=== PATIENT | female | born 1945 | race Caucasian/White ===

== ENCOUNTER 2021-10-23 10:23 | Emergency (ER) | payer MEDICARE ==
[~2021-10-23] VITALS: Ht 162.6 cm; Wt 84.1 kg
[2021-10-23] MEDS ORDERED: GABA-1171 PO (10:42)
[2021-10-23] MEDS ORDERED: CARV25TA PO (10:42)
[2021-10-23] MEDS ORDERED: ECOT81TA5 PO (10:42)
[2021-10-23] MEDS ORDERED: MORP15TA2 PO (10:42)
[2021-10-23] MEDS ORDERED: ATOR40TA75 PO (10:42)
[2021-10-23] MEDS ORDERED: PANT40TA29 PO (10:42)
[2021-10-23] MEDS ORDERED: CYMB1CAP5 PO (10:42)
[2021-10-23] MEDS ORDERED: ALPR0.25 PO (10:42)
[2021-10-23] MEDS ORDERED: AMLO10TA PO (10:42)
[2021-10-23 12:01] VITALS: O2SAT 95
[2021-10-23 12:24] LABS: HEMATOCRIT 41.8 % (36.0-47.0); HEMOGLOBIN 14.6 g/dl (12.0-15.5); MEAN CORPUSCULAR HEMOGLOBIN 33.4 pg (27.0-33.0); MEAN CORPUSCULAR HGB CONC 34.9 g/dl (32.0-36.5); MEAN CORPUSCULAR VOLUME 95.7 fl (80.0-96.0); PLATELET COUNT, AUTOMATED 172 10^3/uL (150-450); RED BLOOD COUNT 4.37 10^6/uL (4.00-5.40); WHITE BLOOD COUNT 10.1 10^3/uL (4.0-10.0)
[2021-10-23 12:57] LABS: ALBUMIN 3.4 GM/DL (3.2-5.2); ALT/SGPT 49 U/L (12-78); BILIRUBIN,TOTAL 0.6 MG/DL (0.2-1.0); BLOOD UREA NITROGEN 11 MG/DL (7-18); CALCIUM LEVEL 8.8 MG/DL (8.8-10.2); CARBON DIOXIDE LEVEL 24 MEQ/L (21-32); CHLORIDE LEVEL 104 MEQ/L (98-107); CREATININE FOR GFR 0.94 MG/DL (0.55-1.30); GLOMERULAR FILTRATION RATE > 60.0 (>39); GLUCOSE, FASTING 120 MG/DL (70-100); POTASSIUM SERUM 3.5 MEQ/L (3.5-5.1); SODIUM LEVEL 137 MEQ/L (136-145); TOTAL PROTEIN 6.8 GM/DL (6.4-8.2)
[2021-10-23] MEDS ORDERED: ALBUTEROL SULFATE 2.5 MG/0.5 ML INH NEB SOLN INH ONE (13:05)
[2021-10-23] MEDS ORDERED: ALBUTEROL 90 MCG/ACT 8GM HFA INHALER INH ONE (13:15)
[2021-10-23] MEDS ORDERED: BENZ200C70 PO (13:29)
[2021-10-23 14:13] VITALS: BP 91/52
== END 2021-10-23 14:15 | disposition home or self-care (01) ==
LOC: M ED 10:23
DX: U07.1 COVID-19 (principal); I25.10 Atherosclerotic heart disease of native coronary artery without angina pectoris; I10 Essential (primary) hypertension
CPT/HCPCS: 36415; 71045; 80053; 85027; 99284; M0222

== ENCOUNTER 2021-10-23 13:33 | Outpatient (CLI) | payer MEDICARE ==
[~2021-10-23 13:33] MED LIST: ALPR0.25 PO; AMLO10TA PO; ATOR40TA75 PO; BENZ200C70 PO; CARV25TA PO; CYMB1CAP5 PO; ECOT81TA5 PO; GABA-1171 PO; MORP15TA2 PO; PANT40TA29 PO
[2021-10-23] MEDS ORDERED: EPINEPHrine INJ 1 MG/ML 1ML AMP IM PRN (13:45)
[2021-10-23] MEDS ORDERED: diphenhydrAMINE 50MG/ML VIAL (J1200) IV PRN (13:45)
[2021-10-23] MEDS ORDERED: ALBUTEROL SULFATE 2.5 MG/0.5 ML INH NEB SOLN INH PRN (13:45)
[2021-10-23] MEDS ORDERED: ALBUTEROL 90 MCG/ACT 8GM HFA INHALER INH PRN (13:45)
[2021-10-23] MEDS ORDERED: NS 1,000 ML IV SCH (13:45)
[2021-10-23] MEDS ORDERED: methylPREDNISolone 125MG 2ML VIAL IV PRN (13:45)
[2021-10-23] MEDS ORDERED: ACETAMINOPHEN TAB 650MG DOSE (2X325MG) PO PRN (13:45)
[2021-10-23 14:30] VITALS: BP 96/51
[2021-10-23] MEDS ORDERED: BEBTELOVIMAB 175MG 2ML VIAL (EUA) IV ONE (15:00)
[2021-10-23 15:55] VITALS: BP 110/55
[2021-10-23 16:25] VITALS: BP 120/57
== END 2021-10-23 16:00 | disposition home or self-care (01) ==
LOC: M OPCLI4 13:33 → M 4MAIN 13:34 → M OPCLI4 16:00
PROVIDERS: ATTEND Internal Medicine
DX: U07.1 COVID-19 (principal)